=== PATIENT | female | born 1965 | race Caucasian/White ===

== ENCOUNTER 2020-09-21 06:04 | Day surgery (SDC) | payer OTHER, SELFPAY ==
[~2020-09-21] VITALS: Ht 162.6 cm; Wt 97.5 kg
[~2020-09-21 06:04] MED LIST: ACET-8386 PO; AMOX-842 PO; MIRABULK PO
[2020-09-21] MEDS ORDERED: LIDOCAINE 2% 100 MG/5 ML UJET TP ONE (08:20)
[2020-09-21] MEDS ORDERED: fentaNYL citrate 0.05 MG/ML VIAL ONE (08:20)
[2020-09-21] MEDS ORDERED: MIDAZOLAM 5 MG/5 ML VIAL ONE ×2 (08:22→09:05)
[2020-09-21] MEDS ORDERED: MIDAZOLAM 2 MG/2 ML VIAL IVP ONE (09:20)
[2020-09-21] MEDS ORDERED: fentaNYL citrate 0.05 MG/ML VIAL IVP ONE (09:20)
== END 2020-09-21 10:40 | disposition home or self-care (01) ==
LOC: MDS 06:04 → MMU 06:05 → MDS 10:40
PROVIDERS: ATTEND Internal Medicine Gastroenterology
DX: K62.5 Hemorrhage of anus and rectum (principal); K63.5 Polyp of colon; K57.32 Diverticulitis of large intestine without perforation or abscess without bleeding; K21.9 Gastro-esophageal reflux disease without esophagitis; K52.9 Noninfective gastroenteritis and colitis, unspecified; Z98.890 Other specified postprocedural states; Z20.828 Contact with and (suspected) exposure to other viral communicable diseases
CPT/HCPCS: 45385; J2250; J3010; U0003